=== PATIENT | female | born 1985 | race Caucasian/White ===

== ENCOUNTER 2023-09-28 10:31 | Emergency (ER) | payer MEDICAID, OTHER ==
[~2023-09-28] VITALS: Ht 157.5 cm; Wt 79.4 kg
[2023-09-28 10:36] VITALS: BP 129/83; PULSE 97; RESP 18; TEMP 97.9; O2SAT 97
== END 2023-09-28 11:05 ==
LOC: MED 10:31
DX: S00.81XA Abrasion of other part of head, initial encounter (principal); Z88.0 Allergy status to penicillin; Z79.899 Other long term (current) drug therapy; W18.30XA Fall on same level, unspecified, initial encounter; Y93.89 Activity, other specified; Y92.89 Other specified places as the place of occurrence of the external cause; Y99.8 Other external cause status
CPT/HCPCS: 99283